=== PATIENT | male | born 1965 | race Caucasian/White ===

== ENCOUNTER 2017-01-22 15:55 | Emergency (ER) | payer OTHER, MEDICAID ==
[~2017-01-22] VITALS: Ht 175.3 cm; Wt 62.1 kg
[2017-01-22 16:02] VITALS: BP 163/109; PULSE 62; RESP 18; TEMP 98.3; O2SAT 98
[2017-01-22] MEDS ORDERED: KETOROLAC TROMETHAMINE 30 MG VIAL IVP ONE (16:15)
[2017-01-22] MEDS ORDERED: PROCHLORPERAZINE EDISYLATE 10 MG/2 ML VIAL IVP ONE (16:15)
[2017-01-22] MEDS ORDERED: DEXAMETHASONE SOD PHOSPHATE 10 MG/ML VIAL IVP ONE (16:15)
[2017-01-22 16:38] LABS: BASOPHILS % (AUTO) 0.3 % (0.0-2.0); EOSINOPHILS # (AUTO) 0.2 K/uL (0.0-0.4); EOSINOPHILS % (AUTO) 3.8 % (0.0-4.0); HEMATOCRIT 40.5 % (36-54); HEMOGLOBIN 13.2 g/dL (14.0-18.0); LYMPHOCYTES % (AUTO) 32.2 % (20.5-51.5); MEAN CORPUSCULAR HEMOGLOBIN 33 pg (27-31); MEAN CORPUSCULAR HGB CONC 33 % (32-36); MEAN CORPUSCULAR VOLUME 100 fL (79.0-98.0); MONOCYTES # (AUTO) 0.3 K/uL (0.0-1.0); MONOCYTES % (AUTO) 5.5 % (1.7-9.3); NEUTROPHILS # (AUTO) 3.8 K/uL (1.8-7.7); NEUTROPHILS % (AUTO) 58.2 % (40.0-70.0); PLATELET COUNT (AUTO) 217 K/uL (130-430); RED BLOOD CELL COUNT(AUTO) 4.07 MIL/uL (4.2-6.2); RED CELL DISTRIBUTION WIDTH 13.8 % (9.0-15.0); WHITE BLOOD COUNT (AUTO) 6.3 K/uL (4.8-10.8)
[2017-01-22 17:04] LABS: CALCIUM 8.7 mg/dL (8.4-11.0); CHLORIDE 108 mmol/L (98-107); CREATININE 1.08 mg/dL (0.55-1.30); GLUCOSE 90 mg/dL (70-99); POTASSIUM 3.8 mmol/L (3.5-5.1); SODIUM SERUM 139 mmol/L (136-145); UREA NITROGEN, BLOOD 18 mg/dL (8-21)
[2017-01-22 17:05] LABS: ANION GAP < 3 (5-15); GFR AFRICAN AMERICAN 93 mL/min (>90)
[2017-01-22 17:09] LABS: ALANINE AMINOTRANSFERASE 31 U/L (12-78); ALBUMIN 3.2 g/dL (3.4-4.8); ASPARTATE AMINOTRANSFERASE 27 U/L (10-37); TOTAL PROTEIN, SERUM 8.7 g/dL (6.4-8.3)
[2017-01-22 17:26] LABS: TOTAL BILIRUBIN 0.1 mg/dL (0.0-1.0)
[2017-01-22 17:56] VITALS: BP 149/89; PULSE 67; RESP 18; TEMP 98.3; O2SAT 98
== END 2017-01-22 17:52 | disposition home or self-care (01) ==
LOC: SED 15:55
DX: I10 Essential (primary) hypertension (principal); R51 Headache; R35.0 Frequency of micturition
CPT/HCPCS: 36415; 70450; 80053; 84484; 85025; 96374; 96375; 99285; J0780; J1100; J1885